=== PATIENT | male | born 1945 | race Caucasian/White ===

== ENCOUNTER 2017-01-24 15:49 | Inpatient (IN) | payer OTHER, MEDICARE ==
[~2017-01-24] VITALS: Ht 172.7 cm; Wt 88.9 kg
--- NOTE | ~2017-01-24 | D ---
[facility] [address] DISCHARGE SUMMARY Name: HERIBERTO BHATIA Room #: 358-P ADM IN M.R.#: [id number] Admission: 01/24/17 Attend Phys: Murphy Miller MD Discharge: Date of : 49 Report #: [id number] THIS REPORT FOR: //name// CC: Murphy Miller NO PCP FINAL DIAGNOSIS: Chest discomfort. HOSPITAL COURSE: The patient was admitted to the emergency room with lightheadedness and chest discomfort with a report of irregular heart beat from a walk-in clinic and he was referred to the ER on the day of admission. He was assessed by the ER physician and admitted. Dr. Phillip saw him in consultation from cardiology and managed his care. Stress test and echocardiogram were unremarkable. He felt the patient was safe for discharge home and to follow up as an outpatient. Flagyl was discontinued as the patient thought symptoms were side effect of that medication as he reported to the ER physician. DISPOSITION: He will be discharged to home with diet and activity as tolerated. Follow up with us and cardiac clinic in 1-2 weeks. Resume all home medications except Flagyl. Return to ER for any worsening or change in symptoms. By: 1410 1438 Murphy Miller MD /nt
--- NOTE | ~2017-01-24 | EKG ---
[place] [address] [address] [facility] [place] [address] ELECTROCARDIOGRAM REPORT Name: HERIBERTO BHATIA Room #: [facility] [place]#: [id number] Admission: 01/24/17 Attend Phys: Discharge: Date of : 49 Report #: [id number] THIS REPORT FOR: //name// [facility] ED Test Date: 2017-01-24 Test Time: 16:04:37 Pat Name: HERIBERTO BHATIA Department: Room: Gender: Lead Programmer: Natali HENRY : 1945 Requested By: Dustin Calles Order Number: [id number] MD: Manuel Nix Measurements Intervals [place] Rate: 69 P: 4 AK: 176 QRS: -22 QRSD: 88 T: 4 QT: 416 QTc: 446 Interpretive Statements Sinus rhythm Atrial premature complexes Compared to ECG 06/16/2010 17:08:48 Atrial premature complex(es) now present Electronically Signed On 01-24-2017 17:14:06 [employer] SUPERVISOR by Manuel Nix [email or web address] <ELECTRONICALLY SIGNED> By: Manuel Nix MD, [facility] 01/24/17 1714 1604 1604 Manuel Nix MD, FACC /EPI
--- NOTE | ~2017-01-24 | 2DMMODE ---
[facility] [address] [place] [address] 2 D/M-MODE ECHOCARDIOGRAM Name: JANNETTEHERIBERTO Room #: 358-P ADM IN M.R.#: [id number] Admission: 01/24/17 Attend Phys: Hemalatha Edmondson Discharge: Date of : 49 Date of Service: 01/25/17 1028 Report #: [id number] THIS REPORT FOR: //name// APPROVED REPORT Study performed: 01/25/2017 08:42:17 EXAM: Comprehensive 2D, Doppler, and color-flow Echocardiogram Patient Location: Bedside Room #: 358 Status: routine BSA: 2.00 HR: 67 bpm BP: 103/61 mmHg Other Information Study Quality: Adequate Indications Arrhythmia Dyspnea Chest Pain 2D Dimensions RVDd: 40.65 mm LVEF(%): 66.11 (>50%) IVSd: 10.64 (7-11mm) LVOT Diam: 19.22 (18-24mm) LVDd: 36.51 mm PWd: 9.87 (7-11mm) Ascending Ao: 32.90 (22-36mm) LVDs: 23.48 (25-40mm) Aortic Root: 30.43 mm IVC: 19.00 mm Landa's LVEF: 66.11 % Volumes Left Atrial Volume (Systole) Single Plane 4CH: 37.44 mL Single Plane 2CH: 42.82 mL LA ESV Index: 23.00 mL/m2 Aortic Valve AoV Peak Dandy.: 0.98 m/s AO Peak Gr.: 3.86 mmHg LVOT Max P.79 mmHg LVOT Max V: 0.83 m/s HENOK Vmax: 2.46 cm2 Mitral Valve E/A Ratio: 2.[address] [facility] [place] [address] 2 D/M-MODE ECHOCARDIOGRAM Name: HERIBERTO BHATIA Room #: 358-P [facility] IN .R.#: [id number] Admission: 01/24/17 Attend Phys: Hemalatha Edmondson Discharge: Date of : 49 Date of Service: 01/25/17 1028 Report #: [id number] MV Decel. Time: 122.20 ms MV E Max Dandy.: 0.86 m/s MV A Dandy.: 0.40 m/s MV PHT: 35.44 ms IVRT: 83.04 ms Pulmonary Valve PV Peak Dandy.: 0.71 m/s PV Peak Gr.: 2.04 mmHg VT End Vmax: 0.96 m/s Pulmonary Vein P Vein S: 0.48 m/s P Vein A: 0.23 m/s P Vein D: 0.37 m/s P Vein A Dur.: 106.1 msec P Vein S/D Ratio: 1.30 Left Ventricle The left ventricle is normal size. There is normal LV segmental wall motion. There is normal left ventricular wall thickness. The left ventricular systolic function is normal. The left ventricular ejection fraction is within the normal range. LVEF is 60-65%. The left ventricular diastolic function is normal. Right Ventricle The right ventricle is normal size. The right ventricular systolic function is normal. Atria The left atrium size is normal. The right atrium size is normal. Aortic Valve The aortic valve is normal in structure. No aortic regurgitation is present. There is no aortic valvular stenosis. Mitral Valve The mitral valve is normal in structure. There is no mitral valve regurgitation noted. No evidence of mitral valve stenosis. Tricuspid Valve The tricuspid valve is normal in structure. There is no tricuspid valve regurgitation noted. Pulmonic Valve The pulmonary valve is normal in structure. Trace pulmonic regurgitation. [address] [address] 2 D/M-MODE ECHOCARDIOGRAM Name: HERIBERTO BHATIA Room #: 358-P [facility] IN M.R.#: [id number] Admission: 01/24/17 Attend Phys: Hemalatha Edmondson Discharge: Date of : 49 Date of Service: 01/25/17 1028 Report #: [id number] Great Vessels The aortic root is normal in size. IVC is normal in size and collapses >50% with inspiration. Pericardium There is no pericardial effusion. <Conclusion> 1. Normal echocardiogram with Doppler EF 65% <ELECTRONICALLY SIGNED> By: Manuel Nix MD, [facility] 01/25/17 1028 1028 1028 Manuel Nix MD, [facility] /INF
--- NOTE | ~2017-01-24 | HC ---
[facility] [place] [address] CONSULTATION Name: HERIBERTO BHATIA Room #: 358-[facility] IN M.R.#: [id number] Admission: 01/24/17 Attend Phys: Murphy Miller MD Discharge: 01/25/17 Date of : 49 Report #: [id number] THIS REPORT FOR: //name// CC: Murphy Miller NO PCP REASON FOR CONSULTATION: Palpitations and chest pain. HISTORY OF PRESENT ILLNESS: The patient is a 71-year-old male with history of hypertension, GERD, and essential tremor who recently started having upper respiratory tract infection and was diagnosed with possible sinusitis, was started on antibiotics in the form clarithromycin. After starting this antibiotic, he started having increased weakness, fatigue, some shortness of breath, palpitations with occasional skipped heartbeats associated with some chest pain and pressure. As such, he came to the emergency room for further evaluation. REVIEW OF SYSTEMS: GENERAL: No fevers or chills. HEENT: No sore throat, but congestion. CARDIOVASCULAR: Some chest pressure and some shortness of breath. PULMONARY: No productive cough. GASTROINTESTINAL: No nausea or vomiting. GENITOURINARY: No dysuria. MUSCULOSKELETAL: No myalgias or arthralgias. ENDOCRINE: No heat or cold intolerance. PAST MEDICAL HISTORY: 1. Hypertension. 2. GERD. 3. Tremors. FAMILY HISTORY: Significant for coronary artery disease. SOCIAL HISTORY: The patient does not smoke. He drinks occasionally. ALLERGIES: He has no known drug allergies. MEDICATIONS: Include propranolol, famciclovir, Protonix, aspirin, lisinopril/HCTZ. PHYSICAL EXAMINATION: VITAL SIGNS: Temperature is 36.7, pulse 55, respirations 20, blood pressure 103/61, and sats 94%. GENERAL: He is in no acute distress, lying flat, undergoing echocardiogram. HEENT: Oropharynx is clear. NECK: Supple with no thyromegaly. [facility] [address] [place] [address] CONSULTATION Name: HERIBERTO BHATIA Room #: 358-P [facility] IN [facility]#: [id number] Admission: 01/24/17 Attend Phys: Murphy Miller MD Discharge: 01/25/17 Date of : 49 Report #: [id number] HEART: Regular rate and rhythm with no murmurs, rubs or gallops. He does not have elevated jugular venous pressure. LUNGS: Clear to auscultation bilaterally. ABDOMEN: Soft, nontender, nondistended with no hepatosplenomegaly. EXTREMITIES: There is no clubbing, cyanosis, or edema. NEUROLOGIC: Cranial nerves 2-12 are intact. His 12-lead EKG shows sinus rhythm, no ischemia and some PACs. LABS: White count of 6.5, hemoglobin 15, platelets 186. Chemistries: Sodium 142, potassium 3.6, BUN 14, creatinine 1.1. His troponin is negative x3. His proBNP is 91. His chest x-ray shows no acute process. ASSESSMENT: 1. Palpitations. 2. Chest pain. 3. Shortness of breath. 4. Hypertension. 5. Essential tremor. 6. Gastroesophageal reflux disease. PLAN: The patient is a 71-year-old with hypertension who presents with palpitations, chest pain, and shortness of breath. With regard to his palpitations, it looks like he has premature atrial contractions. Sometimes PACs can increase in the setting of an upper respiratory tract infection. I recommended treating his infection and continue with the propranolol therapy. I recommended that as an outpatient we consider wearing a monitor to ensure he has no other atrial arrhythmias. With regards to his chest pain and shortness of breath, I recommended an echocardiogram and a nuclear stress test. If these are within normal limits, he can be discharged later today. Thank you for allowing me to participate in his care. <ELECTRONICALLY SIGNED> By: Serafin Phillip MD 01/28/17 1252 0908 1348 Serafin Phillip MD /nt
[~2017-01-24 15:49] MED LIST: ASPIRIN EC81 M1 PO; FAMVIR250 MG PO; FLAGYL500 MG PO; LISINOPRIL-HCT1 EAC1 PO; PROPRANOLOL 4040 M1 PO; PROTONIX40 M2 PO
[2017-01-24 15:51] VITALS: BP 141/43
[2017-01-24 16:31] LABS: ABSOLUTE NEUTROPHILS 2.9 thou/uL (1.4-8.2); BASOPHILS 1.4 % (0.0-2.0); EOSINOPHILS 4.5 % (0.0-3.0); HEMATOCRIT 47.8 % (42.0-52.0); HEMOGLOBIN 16.2 gm/dL (14.0-18.0); LYMPHOCYTES 35.3 % (24.0-44.0); MCHC 33.8 g/dL (28.0-37.0); MCV 97.6 fL (80.0-100.0); MONOCYTES 10.9 % (1.0-8.0); PLATELET COUNT 228 thou/uL (150-400); POLYS 47.9 % (36.0-66.0); RDW 13.1 % (10.5-14.5); WBC 6.1 thou/uL (4.0-11.0)
[2017-01-24 16:33] LABS: MANUAL DIFF NO
[2017-01-24 16:39] LABS: ANION GAP 8 mmol/L (7-16); BUN 16 mg/dL (7-18); CALCIUM 9.2 mg/dL (8.5-10.1); CHLORIDE 104 mmol/L (98-107); CO2 30 mmol/L (21-32); GLUCOSE 94 mg/dL (74-106); SODIUM 142 mmol/L (136-145)
[2017-01-24 16:47] LABS: TROPONIN-I < 0.04 ng/mL (<0.06)
[2017-01-24 18:52] VITALS: BP 138/78
[2017-01-24 20:46] VITALS: BP 126/83
[2017-01-24 20:55] VITALS: BP 142/100
[2017-01-24 23:45] VITALS: BP 141/83
[2017-01-25 03:50] VITALS: BP 110/63
[2017-01-25 06:22] LABS: HEMATOCRIT 44.2 % (42.0-52.0); HEMOGLOBIN 15.1 gm/dL (14.0-18.0); MCH 33.6 pg (26.0-34.0); MCHC 34.3 g/dL (28.0-37.0); MCV 97.9 fL (80.0-100.0); RBC 4.51 mil/uL (4.50-6.00); RDW 12.9 % (10.5-14.5); WBC 6.5 thou/uL (4.0-11.0)
[2017-01-25 06:40] LABS: ANION GAP 9 mmol/L (7-16); BUN 14 mg/dL (7-18); CALCIUM 8.7 mg/dL (8.5-10.1); CHLORIDE 106 mmol/L (98-107); CO2 27 mmol/L (21-32); CREATININE 1.1 mg/dL (0.7-1.3); GLUCOSE 107 mg/dL (74-106); POTASSIUM 3.6 mmol/L (3.5-5.1); SODIUM 142 mmol/L (136-145); TROPONIN-I < 0.04 ng/mL (<0.06)
[2017-01-25 07:41] VITALS: BP 103/61
[2017-01-25 14:18] VITALS: BP 103/61
== END 2017-01-25 15:37 | disposition home or self-care (01) | DRG 310 ==
LOC: ER 15:49 → 3W 17:56 → EROBS 17:56 → 3W 20:42
PROVIDERS: Nurse Practitioner
DX: I49.1 Atrial premature depolarization (principal); K21.9 Gastro-esophageal reflux disease without esophagitis; I10 Essential (primary) hypertension; Z82.49 Family history of ischemic heart disease and other diseases of the circulatory system
CPT/HCPCS: 10779

== ENCOUNTER → 2019-03-25 | Outpatient (CLI) | payer OTHER, MEDICARE | LOC: SJCVC 13:40 | DX: I47.1 Supraventricular tachycardia (principal); I49.1 Atrial premature depolarization; I10 Essential (primary) hypertension; Z79.82 Long term (current) use of aspirin; Z79.899 Other long term (current) drug therapy ==

== ENCOUNTER → 2020-03-23 | Outpatient (CLI) | payer OTHER, MEDICARE | LOC: SJCVC 13:33 | PROVIDERS: ATTEND Internal Medicine Cardiovascular Disease | DX: I47.1 Supraventricular tachycardia (principal); I10 Essential (primary) hypertension; Z79.82 Long term (current) use of aspirin; Z79.899 Other long term (current) drug therapy ==

== ENCOUNTER → 2020-04-11 | Outpatient (CLI) | payer OTHER | LOC: CAT 10:56 | PROVIDERS: ATTEND Internal Medicine Cardiovascular Disease | DX: Z13.6 Encounter for screening for cardiovascular disorders (principal); E78.00 Pure hypercholesterolemia, unspecified; I25.10 Atherosclerotic heart disease of native coronary artery without angina pectoris ==

== ENCOUNTER → 2020-06-08 | Outpatient (CLI) | payer OTHER, MEDICARE | LOC: SJCVCIMAG 08:07 | PROVIDERS: ATTEND Internal Medicine Cardiovascular Disease | DX: R00.0 Tachycardia, unspecified (principal); I49.3 Ventricular premature depolarization; I49.1 Atrial premature depolarization; R93.1 Abnormal findings on diagnostic imaging of heart and coronary circulation; I49.9 Cardiac arrhythmia, unspecified; R94.31 Abnormal electrocardiogram [ECG] [EKG]; Z88.8 Allergy status to other drugs, medicaments and biological substances; Z79.82 Long term (current) use of aspirin; Z79.899 Other long term (current) drug therapy ==

== ENCOUNTER → 2021-03-23 | Outpatient (CLI) | payer OTHER, MEDICARE | LOC: SJCVC 13:01 | PROVIDERS: ATTEND Internal Medicine Cardiovascular Disease | DX: R94.31 Abnormal electrocardiogram [ECG] [EKG] (principal); I49.1 Atrial premature depolarization; I47.1 Supraventricular tachycardia; R93.1 Abnormal findings on diagnostic imaging of heart and coronary circulation; I10 Essential (primary) hypertension; E78.00 Pure hypercholesterolemia, unspecified; E78.5 Hyperlipidemia, unspecified; Z88.1 Allergy status to other antibiotic agents; Z79.82 Long term (current) use of aspirin; Z79.899 Other long term (current) drug therapy; Z72.89 Other problems related to lifestyle ==

== ENCOUNTER → 2021-04-11 | Outpatient (CLI) | payer OTHER, MEDICARE | LOC: SJCVCIMAG 06:48 | PROVIDERS: ATTEND Internal Medicine Cardiovascular Disease | DX: I08.1 Rheumatic disorders of both mitral and tricuspid valves (principal); R94.31 Abnormal electrocardiogram [ECG] [EKG]; I47.1 Supraventricular tachycardia; R93.1 Abnormal findings on diagnostic imaging of heart and coronary circulation; I10 Essential (primary) hypertension; I49.1 Atrial premature depolarization; R42 Dizziness and giddiness; Z88.1 Allergy status to other antibiotic agents; Z79.82 Long term (current) use of aspirin; Z79.899 Other long term (current) drug therapy; Z72.89 Other problems related to lifestyle ==